=== PATIENT | female | born 1970 | race Asian ===

== ENCOUNTER 2020-11-03 23:35 | Emergency (ER) | payer OTHER ==
[2020-11-03 23:58] VITALS: BP 156/86; TEMP 98.2; BMI 27.1
[2020-11-04 01:21] LABS: BASO % 0.9 % (0-2.0); EOS % 2.7 % (0-4.5); HEMATOCRIT 36.1 % (32.4-45.2); HEMOGLOBIN 12.2 GM/dL (10.7-15.3); MCH 24.8 pg (25.7-33.7); MCHC 33.8 g/dl (32.0-36.0); MEAN CELL VOLUME 73.2 fl (80-96); MEAN PLT VOLUME 7.5 fl (7.5-11.1); MONO % 9.4 % (3.8-10.2); PLATELET COUNT 402 10^3/uL (134-434); RBC 4.93 M/mm3 (3.60-5.2); RDW 14.6 % (11.6-15.6)
[2020-11-04] MEDS ORDERED: ACETAMINOPHEN 1000 MG/100 ML VIAL (NON FORMULARY) IVPB ONE (01:21)
[2020-11-04] MEDS ORDERED: ACETAMINOPHEN INJECTION 100 ML IVPB ONE (01:29)
[2020-11-04 01:38] LABS: CHLORIDE 105 mmol/L (98-107); SODIUM 136 mmol/L (136-145)
[2020-11-04] MEDS ORDERED: LACTATED RINGERS SOLUTION 1000 ML INFUS.BAG IV ONE (01:39)
[2020-11-04 01:40] LABS: ALBUMIN 3.6 g/dl (3.4-5.0)
[2020-11-04 01:41] LABS: ANION GAP 8 MMOL/L (8-16); CO2 24 mmol/L (21-32); GLUCOSE,RANDOM 97 mg/dL (74-106); LIPASE 119 U/L (73-393)
[2020-11-04 01:43] LABS: SGOT/AST 33 U/L (15-37); SGPT/ALT 38 U/L (13-61)
[2020-11-04 01:44] LABS: CREATININE 0.6 mg/dL (0.55-1.3)
[2020-11-04 01:45] LABS: BILIRUBIN,TOTAL 0.5 mg/dL (0.2-1); TOT PROT 8.3 g/dl (6.4-8.2)
[2020-11-04 01:46] LABS: ALK PHOS 72 U/L (45-117)
[2020-11-04 02:52] VITALS: PULSE 91
== END 2020-11-04 02:52 | disposition home or self-care (01) ==
LOC: JER 23:35
PROC: 3E0333Z Introduction of Anti-inflammatory into Peripheral Vein, Percutaneous Approach (ICD-10-PCS; principal; 2020-11-03)
DX: K21.9 Gastro-esophageal reflux disease without esophagitis (principal); K76.0 Fatty (change of) liver, not elsewhere classified; J18.9 Pneumonia, unspecified organism
CPT/HCPCS: 36415; 71046-TC-FY; 76705-TC; 80053; 83690; 84484; 85025; 93005; 93010; 99285-25; J0131

== ENCOUNTER 2022-07-04 11:50 | Emergency (ER) | payer OTHER ==
[2022-07-04 11:58] VITALS: BP 130/77; PULSE 86; RESP 19; TEMP 97.5; BMI 28.4
[2022-07-04] MEDS ORDERED: ALBUTEROL SO4 2.5/IPRATROPIUM 0.5 INH SOL 3 ML VIAL.NEB. NEB ONE (12:42)
[2022-07-04] MEDS: ALBUTEROL SO4 2.5/IPRATROPIUM 0.5 INH SOL 3 ML VIAL.NEB. NEB SCH (12:48)
== END 2022-07-04 14:30 | disposition home or self-care (01) ==
LOC: JER 11:50
PROC: 3E0F7GC Introduction of Other Therapeutic Substance into Respiratory Tract, Via Natural or Artificial Opening (ICD-10-PCS; principal; 2022-07-04)
DX: R05.9 Cough, unspecified (principal)
CPT/HCPCS: 0241U-QW; 71045-TC-FY; 93005; 93010; 99285-25

== ENCOUNTER 2022-10-17 21:03 | Emergency (ER) | payer OTHER ==
[2022-10-17 21:11] VITALS: BP 122/73; PULSE 80; RESP 18; TEMP 97.5; BMI 25.8
[2022-10-17] MEDS ORDERED: LACTATED RINGERS SOLUTION 1,000 ML/1,000 ML INFUS.BAG IV ONE (22:31)
[2022-10-17] MEDS ORDERED: MECLIZINE HCL 25 MG TABLET (FP) PO ONE ×2 (22:32→23:41)
[2022-10-17] MEDS ORDERED: MECLIZINE HCL 25 MG TABLET (FP) ONE (22:42)
[2022-10-17 22:48] LABS: HEMATOCRIT 35.7 % (32.4-45.2); HEMOGLOBIN 11.8 GM/dL (10.7-15.3); MCH 23.8 pg (25.7-33.7); MEAN CELL VOLUME 72.1 fl (80-96); MEAN PLT VOLUME 8.1 fl (7.5-11.1); PLATELET COUNT 311 10^3/uL (134-434); RBC 4.96 M/mm3 (3.60-5.2); RDW 15.1 % (11.6-15.6); WHITE BLOOD COUNT 6.7 K/mm3 (4.0-10.0)
[2022-10-17 23:07] LABS: ALBUMIN 3.7 g/dl (3.4-5.0); BLOOD UREA NITROGEN 13.4 mg/dL (7-18); CALCIUM 9.4 mg/dL (8.5-10.1)
[2022-10-17 23:10] LABS: CREATININE 0.7 mg/dL (0.55-1.3)
[2022-10-17 23:12] LABS: BILIRUBIN,TOTAL 0.4 mg/dL (0.2-1); TOT PROT 7.6 g/dl (6.4-8.2)
== END 2022-10-18 02:32 | disposition home or self-care (01) ==
LOC: JER 21:03
DX: R11.0 Nausea (principal); R42 Dizziness and giddiness; R51.9 Headache, unspecified; H61.21 Impacted cerumen, right ear
CPT/HCPCS: 36415; 70450-TC; 80053; 84484; 84702; 85027; 93005; 93010; 99285-25

== ENCOUNTER 2023-09-18 02:25 | Emergency (ER) | payer OTHER ==
[2023-09-18 02:31] VITALS: BP 130/90; PULSE 81; RESP 18; TEMP 97; BMI 25.0
[2023-09-18] MEDS ORDERED: ACETAMINOPHEN INJECTION 100 ML IVPB ONE (03:18)
[2023-09-18] MEDS ORDERED: MAG HYDROX/AL HYDROX/SIMETH 30 ML UNIT-DOSE CUP ONE (03:18)
[2023-09-18] MEDS ORDERED: FAMOTIDINE 10 MG/ML VIAL IVPB ONE (03:19)
[2023-09-18] MEDS ORDERED: ONDANSETRON 4 MG/2 ML VIAL ONE (03:19)
[2023-09-18 03:54] LABS: BASO % 0.6 % (0-2.0); EOS % 2.6 % (0-4.5); HEMATOCRIT 39.2 % (32.4-45.2); HEMOGLOBIN 12.9 GM/dL (10.7-15.3); LYMPH % 19.9 % (8-40); MCH 24.2 pg (25.7-33.7); MCHC 32.9 g/dl (32.0-36.0); MEAN CELL VOLUME 73.7 fl (80-96); MEAN PLT VOLUME 8.9 fl (7.5-11.1); MONO % 9.6 % (3.8-10.2); NEUT % 67.3 % (42.8-82.8); PLATELET COUNT 311 10^3/uL (134-434); RBC 5.32 M/mm3 (3.60-5.2); RDW 14.7 % (11.6-15.6); WHITE BLOOD COUNT 6.4 K/mm3 (4.0-10.0)
[2023-09-18] MEDS: MAG HYDROX/AL HYDROX/SIMETH 30 ML UNIT-DOSE CUP PO ONE ×2 (03:58→05:23)
[2023-09-18 04:01] LABS: INR 0.98 (0.83-1.09); PROTHROMBIN TIME (PATIENT) 11.1 SEC (9.7-13.0)
[2023-09-18 04:04] LABS: ACTIVATED PTT 22.9 SECONDS (25.2-36.5)
[2023-09-18 04:14] LABS: POTASSIUM 4.4 mmol/L (3.5-5.1)
[2023-09-18 04:16] LABS: CALCIUM 9.8 mg/dL (8.5-10.1)
[2023-09-18 04:17] LABS: ALBUMIN 3.7 g/dl (3.4-5.0); BLOOD UREA NITROGEN 18.8 mg/dL (7-18)
[2023-09-18 04:20] LABS: CREATININE 0.8 mg/dL (0.55-1.3)
[2023-09-18 04:21] LABS: BILIRUBIN,TOTAL 0.6 mg/dL (0.2-1); TOT PROT 8.2 g/dl (6.4-8.2)
[2023-09-18] MEDS ORDERED: ACETAMINOPHEN 325 MG TABLET (FP) ONE (05:19)
[2023-09-18] MEDS ORDERED: FAMOTIDINE 20 MG TABLET ONE (05:19)
[2023-09-18] MEDS: ACETAMINOPHEN 500 MG TABLET (FP) PO ONE (05:23)
[2023-09-18] MEDS: FAMOTIDINE 20 MG TABLET PO ONE (05:23)
[2023-09-18] MEDS: ACETAMINOPHEN 1000 MG/100 ML BAG IVPB ONE (05:24)
[2023-09-18] MEDS: FAMOTIDINE 20 MG/50 ML IVPB 20 MG/50 ML MG IVPB ONE (05:24)
[2023-09-18] MEDS: ONDANSETRON 4 MG/2 ML VIAL IVPUSH ONE (05:25)
== END 2023-09-18 06:01 | disposition home or self-care (01) ==
LOC: JER 02:25
DX: K29.70 Gastritis, unspecified, without bleeding (principal); K21.9 Gastro-esophageal reflux disease without esophagitis
CPT/HCPCS: 36415; 71046-TC-FY; 80053; 84484; 85025; 85610; 85730; 93005; 93010; 99285-25

== ENCOUNTER 2024-01-28 20:43 | Emergency (ER) | payer OTHER ==
[2024-01-28 20:59] VITALS: BP 107/72; PULSE 82; RESP 18; TEMP 97.5; BMI 29.6
[2024-01-28] MEDS: SODIUM CHLORIDE FOR INHALATION 3 ML VIAL.NEB IH ONE (22:09)
[2024-01-28 22:16] LABS: BASO % 1.2 % (0-2.0); EOS % 1.7 % (0-4.5); HEMATOCRIT 36.5 % (32.4-45.2); HEMOGLOBIN 11.7 GM/dL (10.7-15.3); LYMPH % 22.9 % (8-40); MCH 22.9 pg (25.7-33.7); MCHC 32.1 g/dl (32.0-36.0); MEAN CELL VOLUME 71.4 fl (80-96); MEAN PLT VOLUME 8.6 fl (7.5-11.1); MONO % 9.8 % (3.8-10.2); NEUT % 64.4 % (42.8-82.8); PLATELET COUNT 303 10^3/uL (134-434); RBC 5.11 M/mm3 (3.60-5.2); RDW 15.4 % (11.6-15.6); WHITE BLOOD COUNT 6.4 K/mm3 (4.0-10.0)
[2024-01-28 22:42] LABS: POTASSIUM 4.9 mmol/L (3.5-5.1)
[2024-01-28 22:44] LABS: ALBUMIN 3.9 g/dl (3.4-5.0); BLOOD UREA NITROGEN 16.2 mg/dL (7-18); CALCIUM 9.9 mg/dL (8.5-10.1)
[2024-01-28 22:47] LABS: CREATININE 0.9 mg/dL (0.55-1.3)
[2024-01-28 22:49] LABS: BILIRUBIN,TOTAL 0.5 mg/dL (0.2-1); TOT PROT 8.2 g/dl (6.4-8.2)
== END 2024-01-28 23:25 | disposition home or self-care (01) ==
LOC: JERFT 20:43
DX: J02.9 Acute pharyngitis, unspecified (principal); J32.9 Chronic sinusitis, unspecified; R06.02 Shortness of breath; R07.89 Other chest pain; Z20.822 Contact with and (suspected) exposure to COVID-19
CPT/HCPCS: 0241U-QW; 36415; 71046-TC-FY; 80053; 84484; 85025; 87651; 93005; 93010; 99285-25